=== PATIENT | female | born 1935 | race Caucasian/White ===

== ENCOUNTER 2023-01-03 12:43 | Inpatient (IN) | payer OTHER ==
[~2023-01-03] VITALS: Ht 167.6 cm; Wt 80.7 kg
[2023-01-03 12:55] VITALS: BP 156/89; PULSE 73; RESP 18; TEMP 97.8; O2SAT 100
[2023-01-03] MEDS ORDERED: MORPHINE SULFATE 2 MG/ML SYR IVP ONE (13:30)
[2023-01-03] MEDS ORDERED: ONDANSETRON 4 MG/2 ML VIAL IVP ONE (13:30)
[2023-01-03 13:50] VITALS: O2SAT 100
[2023-01-03 14:06] LABS: BASOPHILS % (AUTO) 0.2 % (0.0-2.0); EOSINOPHILS # (AUTO) 0.1 K/uL (0-0.4); EOSINOPHILS % (AUTO) 0.4 % (0.0-4.0); HEMATOCRIT 40.6 % (36-48); HEMOGLOBIN 13.2 g/dL (12.0-16.0); LYMPHOCYTES # (AUTO) 1.2 K/uL (2.5-16.5); LYMPHOCYTES % (AUTO) 7.9 % (20.5-51.1); MEAN CORPUSCULAR HEMOGLOBIN 28 pg (27-31); MEAN CORPUSCULAR HGB CONC 33 g/dL (33-37); MEAN CORPUSCULAR VOLUME 85.3 fL (80-94); MONOCYTES # (AUTO) 0.8 K/uL (0.8-1.0); MONOCYTES % (AUTO) 5.6 % (1.7-9.3); NEUTROPHILS # (AUTO) 12.7 K/uL (1.8-7.7); NEUTROPHILS % (AUTO) 85.9 % (42.2-75.2); PLATELET COUNT (AUTO) 229 K/uL (140-450); RED BLOOD CELL COUNT(AUTO) 4.76 MIL/uL (4.20-5.40); RED CELL DISTRIBUTION WIDTH 16.5 % (11.6-13.7); WHITE BLOOD COUNT (AUTO) 14.8 K/uL (4.8-10.8)
[2023-01-03 14:16] LABS: INR 1.22 (0.8-1.2); PARTIAL THROMBOPLASTIN TIME 29.5 secs (22-35.6); PROTHROMBIN TIME 12.7 secs (10.8-13.4)
[2023-01-03 14:18] LABS: ALANINE AMINOTRANSFERASE 17 U/L (12-78); ALBUMIN 3.8 g/dL (3.4-5.0); ALKALINE PHOSPHATASE 55 U/L (50-136); ASPARTATE AMINOTRANSFERASE 29 U/L (15-37); CALCIUM 9.5 mg/dL (8.5-10.1); CARBON DIOXIDE 28.1 mmol/L (21-32); CHLORIDE 100 mmol/L (98-107); CREATININE 1.1 mg/dL (0.6-1.3); GLUCOSE 104 mg/dL (74-106); POTASSIUM 4.1 mmol/L (3.5-5.1); SODIUM SERUM 136 mmol/L (136-145); TOTAL BILIRUBIN 0.6 mg/dL (0.0-1.0); TOTAL PROTEIN, SERUM 7.3 g/dL (6.4-8.2); UREA NITROGEN, BLOOD 39 mg/dL (7-18)
[2023-01-03] MEDS ORDERED: MORPHINE SULFATE 4 MG/ML SYR IVP ONE (16:10)
[2023-01-03] MEDS ORDERED: DOCUSATE SODIUM 100 MG GELCAP PO PRN (16:35)
[2023-01-03] MEDS ORDERED: POTASSIUM CHLORIDE 10 MEQ TABER PO PRN (16:35)
[2023-01-03] MEDS ORDERED: guaiFENesin DM 200/20 MG-10 ML 10 ML UDC PO PRN (16:35)
[2023-01-03] MEDS ORDERED: ACETAMINOPHEN 325 MG TAB PO PRN (16:35)
[2023-01-03] MEDS ORDERED: MORPHINE SULFATE 2 MG/ML SYR IVP PRN (16:35)
[2023-01-03] MEDS ORDERED: hydrALAZINE 20 MG/ML VIAL IVP PRN (16:35)
[2023-01-03] MEDS ORDERED: ZOLPIDEM 5 MG TAB PO PRN (16:35)
[2023-01-03] MEDS ORDERED: ONDANSETRON 4 MG/2 ML VIAL IM/IVP PRN (16:35)
[2023-01-03] MEDS ORDERED: HYDROcodone/APAP 7.5/325 MG 1 TAB PO PRN (16:35)
[2023-01-03] MEDS ORDERED: ASPI-1822 PO (16:37)
[2023-01-03] MEDS ORDERED: METO-744 PO (16:37)
[2023-01-03] MEDS ORDERED: [UNRECOGNIZED DRUG - CODE] PO (16:37)
[2023-01-03] MEDS ORDERED: AMLO-3 PO (16:37)
[2023-01-03] MEDS ORDERED: POTA8TAB (16:37)
[2023-01-03] MEDS ORDERED: SIMV10TA92 PO (16:37)
[2023-01-03] MEDS ORDERED: OLME40TA PO (16:37)
[2023-01-03] MEDS ORDERED: HYDR25TA32 PO (16:37)
[2023-01-03] MEDS: DEXT 5% / NACL 0.9% 1,000 ML IV SCH (16:57)
[2023-01-03 17:44] LABS: CHOL/HDL RATIO 2.7 (1-4.5); FREE T4 (FREE THYROXINE) 1.31 ng/dL (0.76-1.46); MAGNESIUM 1.6 mg/dL (1.8-2.4); PHOSPHORUS 3.9 mg/dL (2.5-4.9); THYROID STIMULATING HORMONE 1.51 uIU/mL (0.34-3.74)
[2023-01-03 19:38] LABS: APPEARANCE,URINE CLEAR (CLEAR); BILIRUBIN,URINE NEGATIVE (NEGATIVE); BLOOD, URINE NEGATIVE (NEGATIVE); COLOR,URINE YELLOW (YELLOW); LEUKOCYTE ESTERASE ,URINE 2+ (NEGATIVE); NITRITE, URINE POSITIVE (NEGATIVE); PROTEIN,URINE NEGATIVE (NEGATIVE); UGLUCOSE NEGATIVE (NEGATIVE); UROBILINOGEN,URINE 0.2 EU/dL (0.2 - 1)
[2023-01-03 19:51] LABS: BACTERIA,URINE FEW /HPF (None Seen); RBC,URINE 0-5 /HPF (0-5); SQUAMOUS EPITHELIAL CELL,UR 4-10 (MOD) /LPF (0-3 (FEW))
[2023-01-03 22:40] VITALS: PULSE 71; RESP 18; O2SAT 97
[2023-01-03] MEDS ORDERED: LEVOFLOXACIN 500 MG/D5W PREMIX 100 ML IV SCH (23:05)
[2023-01-03 23:20] VITALS: PULSE 70; RESP 16; O2SAT 97
[2023-01-04] VITALS (7 sets, daily range): BP systolic 141–169; BP diastolic 53–65; PULSE 75–83; RESP 18–20; TEMP 97.1–98.5; O2SAT 92–95
[2023-01-04] MEDS: LEVOFLOXACIN 750 MG/D5W PREMIX 150 ML IV SCH ×2 (01:00→08:48)
[2023-01-04] MEDS: DEXT 5% / NACL 0.9% 1,000 ML IV SCH ×3 (04:53→23:48)
[2023-01-04 05:36] LABS: BASOPHILS % (AUTO) 0.2 % (0.0-2.0); EOSINOPHILS # (AUTO) 0.2 K/uL (0-0.4); EOSINOPHILS % (AUTO) 2.2 % (0.0-4.0); HEMATOCRIT 36.4 % (36-48); HEMOGLOBIN 11.8 g/dL (12.0-16.0); LYMPHOCYTES # (AUTO) 0.8 K/uL (2.5-16.5); MEAN CORPUSCULAR HEMOGLOBIN 28 pg (27-31); MEAN CORPUSCULAR HGB CONC 32 g/dL (33-37); MEAN CORPUSCULAR VOLUME 85.5 fL (80-94); MONOCYTES # (AUTO) 0.5 K/uL (0.8-1.0); MONOCYTES % (AUTO) 4.7 % (1.7-9.3); NEUTROPHILS # (AUTO) 9.7 K/uL (1.8-7.7); NEUTROPHILS % (AUTO) 85.9 % (42.2-75.2); PLATELET COUNT (AUTO) 200 K/uL (140-450); RED BLOOD CELL COUNT(AUTO) 4.26 MIL/uL (4.20-5.40); RED CELL DISTRIBUTION WIDTH 16.5 % (11.6-13.7); WHITE BLOOD COUNT (AUTO) 11.3 K/uL (4.8-10.8)
[2023-01-04 05:51] LABS: ANION GAP 10.4 (8-16); CALCIUM 8.5 mg/dL (8.5-10.1); CARBON DIOXIDE 29.8 mmol/L (21-32); CHLORIDE 102 mmol/L (98-107); CREATININE 0.9 mg/dL (0.6-1.3); GLUCOSE 126 mg/dL (74-106); POTASSIUM 4.2 mmol/L (3.5-5.1); SODIUM SERUM 138 mmol/L (136-145); UREA NITROGEN, BLOOD 26 mg/dL (7-18)
[2023-01-04 07:09] LABS: T4 (THYROXINE) 10.1 ug/dL (4.5-12.0)
[2023-01-04] MEDS ORDERED: ACETAMINOPHEN 325 MG TAB PO PRN (07:40)
[2023-01-04] MEDS ORDERED: DOCUSATE SODIUM 100 MG GELCAP PO PRN (07:40)
[2023-01-04] MEDS ORDERED: LORazepam 2 MG/ML VIAL IVP PRN (07:40)
[2023-01-04] MEDS ORDERED: POTASSIUM CHLORIDE 10 MEQ TABER PO PRN (07:40)
[2023-01-04] MEDS ORDERED: MAG SULF 2000 MG/WATER PREMIX 50 ML IV PRN (07:40)
[2023-01-04] MEDS: PANTOPRAZOLE 40 MG TABEC PO SCH (08:48)
[2023-01-04] MEDS: MORPHINE SULFATE 2 MG/ML SYR IVP PRN ×3 (10:06→20:16)
[2023-01-04] MEDS: hydrALAZINE 20 MG/ML VIAL IVP PRN (15:57)
[2023-01-04] MEDS: ZOLPIDEM 10 MG TAB PO PRN (20:15)
[2023-01-05] VITALS (11 sets, daily range): BP systolic 118–165; BP diastolic 49–61; PULSE 75–91; RESP 18–22; TEMP 98.2–98.5; O2SAT 93–96
[2023-01-05] MEDS: hydrALAZINE 20 MG/ML VIAL IVP PRN (04:19)
[2023-01-05] MEDS: MORPHINE SULFATE 2 MG/ML SYR IVP PRN (05:12)
[2023-01-05 05:24] LABS: BASOPHILS % (AUTO) 0.2 % (0.0-2.0); EOSINOPHILS % (AUTO) 0.3 % (0.0-4.0); HEMATOCRIT 37.8 % (36-48); HEMOGLOBIN 12.5 g/dL (12.0-16.0); LYMPHOCYTES # (AUTO) 0.9 K/uL (2.5-16.5); LYMPHOCYTES % (AUTO) 7.2 % (20.5-51.1); MEAN CORPUSCULAR HEMOGLOBIN 28 pg (27-31); MEAN CORPUSCULAR HGB CONC 33 g/dL (33-37); MEAN CORPUSCULAR VOLUME 85.4 fL (80-94); MONOCYTES # (AUTO) 1.1 K/uL (0.8-1.0); MONOCYTES % (AUTO) 8.9 % (1.7-9.3); NEUTROPHILS # (AUTO) 10.1 K/uL (1.8-7.7); NEUTROPHILS % (AUTO) 83.4 % (42.2-75.2); PLATELET COUNT (AUTO) 191 K/uL (140-450); RED BLOOD CELL COUNT(AUTO) 4.43 MIL/uL (4.20-5.40); RED CELL DISTRIBUTION WIDTH 16.2 % (11.6-13.7); WHITE BLOOD COUNT (AUTO) 12.1 K/uL (4.8-10.8)
[2023-01-05 05:59] LABS: ANION GAP 12.8 (8-16); CALCIUM 8.6 mg/dL (8.5-10.1); CARBON DIOXIDE 28.3 mmol/L (21-32); CHLORIDE 101 mmol/L (98-107); GLUCOSE 135 mg/dL (74-106); POTASSIUM 4.1 mmol/L (3.5-5.1); SODIUM SERUM 138 mmol/L (136-145); UREA NITROGEN, BLOOD 21 mg/dL (7-18)
[2023-01-05] MEDS: PANTOPRAZOLE 40 MG TABEC PO SCH (09:00)
[2023-01-05] MEDS ORDERED: ceFAZolin 2,000 MG VIAL ONE (10:45)
[2023-01-05] MEDS ORDERED: BUPIVACAINE-MPF 0.25% 30 ML VIAL INJ ONE (10:45)
[2023-01-05] MEDS ORDERED: TRANEXAMIC ACID 1,000 MG/10 ML VIAL ONE ×2 (10:45→12:20)
[2023-01-05] MEDS ORDERED: BUPIVACAINE MPF 0.25% 10 ML VIAL INJ ONE (10:46)
[2023-01-05] MEDS ORDERED: PROPOFOL 200 MG/20 ML VIAL IV ONE (10:57)
[2023-01-05] MEDS ORDERED: fentaNYL citrate 0.05 MG/ML VIAL ONE (10:58)
[2023-01-05] MEDS ORDERED: MORPHINE PRES FREE 10 MG/10 ML AMP IV ONE (10:58)
[2023-01-05] MEDS ORDERED: MIDAZOLAM 5 MG/5 ML VIAL ONE (10:59)
[2023-01-05] MEDS ORDERED: VANCOMYCIN 1,000 MG VIAL ONE (11:51)
[2023-01-05] MEDS ORDERED: ETOMIDATE 20 MG/10 ML VIAL IVP ONE (12:31)
[2023-01-05] MEDS ORDERED: ALBUTEROL SULFATE/IPRATROPIU 3 ML SOL IH SCH (14:53)
[2023-01-05] MEDS: DEXT 5% / NACL 0.9% 1,000 ML IV SCH (18:10)
[2023-01-05] MEDS: ONDANSETRON 4 MG/2 ML VIAL IVP PRN (19:20)
[2023-01-06 02:29] VITALS: BP 125/45; PULSE 73; RESP 18; O2SAT 96
[2023-01-06] MEDS: MORPHINE SULFATE 2 MG/ML SYR IVP PRN ×2 (02:30→17:28)
[2023-01-06 04:00] VITALS: BP 114/42; PULSE 70; RESP 18; TEMP 98; O2SAT 99
[2023-01-06 05:29] LABS: BASOPHILS % (AUTO) 0.2 % (0.0-2.0); EOSINOPHILS % (AUTO) 0.1 % (0.0-4.0); HEMATOCRIT 34.6 % (36-48); HEMOGLOBIN 11.2 g/dL (12.0-16.0); LYMPHOCYTES # (AUTO) 0.5 K/uL (2.5-16.5); LYMPHOCYTES % (AUTO) 4.1 % (20.5-51.1); MEAN CORPUSCULAR HEMOGLOBIN 28 pg (27-31); MEAN CORPUSCULAR HGB CONC 32 g/dL (33-37); MEAN CORPUSCULAR VOLUME 86.5 fL (80-94); MONOCYTES # (AUTO) 1.1 K/uL (0.8-1.0); MONOCYTES % (AUTO) 9.1 % (1.7-9.3); NEUTROPHILS # (AUTO) 10.8 K/uL (1.8-7.7); NEUTROPHILS % (AUTO) 86.5 % (42.2-75.2); PLATELET COUNT (AUTO) 158 K/uL (140-450); RED CELL DISTRIBUTION WIDTH 16.7 % (11.6-13.7); WHITE BLOOD COUNT (AUTO) 12.5 K/uL (4.8-10.8)
[2023-01-06 06:11] LABS: ANION GAP 15.5 (8-16); CALCIUM 8.4 mg/dL (8.5-10.1); CARBON DIOXIDE 26.5 mmol/L (21-32); CHLORIDE 103 mmol/L (98-107); CREATININE 1.3 mg/dL (0.6-1.3); GLUCOSE 143 mg/dL (74-106); SODIUM SERUM 140 mmol/L (136-145); UREA NITROGEN, BLOOD 35 mg/dL (7-18)
[2023-01-06] MEDS: DEXT 5% / NACL 0.9% 1,000 ML IV SCH (06:34)
[2023-01-06 08:00] VITALS: PULSE 78; RESP 20; TEMP 97.7; O2SAT 96
[2023-01-06] MEDS: LEVOFLOXACIN 750 MG/D5W PREMIX 150 ML IV SCH (09:41)
[2023-01-06] MEDS: PANTOPRAZOLE 40 MG TABEC PO SCH (09:41)
[2023-01-06] MEDS: ENOXAPARIN 40 MG/0.4 ML SYR SUBQ SCH (09:47)
[2023-01-06] MEDS ORDERED: diazePAM 5 MG TAB PO PRN (19:00)
[2023-01-06] MEDS ORDERED: HYDROcodone/APAP 5/325 MG 1 TAB TAB PO PRN (19:00)
[2023-01-06 19:44] VITALS: O2SAT 94
[2023-01-06 20:00] VITALS: BP 155/56; PULSE 86; RESP 18; RESP 20; TEMP 98.4; O2SAT 94
[2023-01-06] MEDS: ONDANSETRON 4 MG/2 ML VIAL IVP PRN (21:15)
[2023-01-06] MEDS: ZOLPIDEM 10 MG TAB PO PRN (22:48)
[2023-01-07] MEDS: hydrALAZINE 20 MG/ML VIAL IVP PRN (03:44)
[2023-01-07 04:00] VITALS: BP 144/71; RESP 18; TEMP 98.1; O2SAT 94
[2023-01-07 05:18] LABS: BASOPHILS % (AUTO) 0.1 % (0.0-2.0); HEMATOCRIT 34.3 % (36-48); HEMOGLOBIN 11.2 g/dL (12.0-16.0); LYMPHOCYTES # (AUTO) 0.7 K/uL (2.5-16.5); LYMPHOCYTES % (AUTO) 4.8 % (20.5-51.1); MEAN CORPUSCULAR HEMOGLOBIN 28 pg (27-31); MEAN CORPUSCULAR HGB CONC 33 g/dL (33-37); MEAN CORPUSCULAR VOLUME 85.1 fL (80-94); MONOCYTES # (AUTO) 1.1 K/uL (0.8-1.0); MONOCYTES % (AUTO) 8.2 % (1.7-9.3); NEUTROPHILS # (AUTO) 11.7 K/uL (1.8-7.7); NEUTROPHILS % (AUTO) 86.9 % (42.2-75.2); PLATELET COUNT (AUTO) 213 K/uL (140-450); RED BLOOD CELL COUNT(AUTO) 4.03 MIL/uL (4.20-5.40); RED CELL DISTRIBUTION WIDTH 16.6 % (11.6-13.7); WHITE BLOOD COUNT (AUTO) 13.5 K/uL (4.8-10.8)
[2023-01-07 05:41] LABS: ANION GAP 12.6 (8-16); CALCIUM 8.4 mg/dL (8.5-10.1); CARBON DIOXIDE 28.2 mmol/L (21-32); CHLORIDE 100 mmol/L (98-107); GLUCOSE 133 mg/dL (74-106); POTASSIUM 3.8 mmol/L (3.5-5.1); SODIUM SERUM 137 mmol/L (136-145); UREA NITROGEN, BLOOD 31 mg/dL (7-18)
[2023-01-07 08:00] VITALS: TEMP 97.6
[2023-01-07] MEDS ORDERED: CRUSHER, PILL MC ONE (08:30)
[2023-01-07] MEDS: PANTOPRAZOLE 40 MG TABEC PO SCH (08:33)
[2023-01-07] MEDS: ENOXAPARIN 40 MG/0.4 ML SYR SUBQ SCH (08:38)
[2023-01-07] MEDS ORDERED: METOPROLOL SUCCINATE 50 MG TABER PO SCH (09:00)
[2023-01-07] MEDS ORDERED: hydroCHLOROthiazide 25 MG TAB PO SCH (09:00)
[2023-01-07] MEDS ORDERED: amLODIPine 5 MG TAB PO SCH (09:00)
[2023-01-07 09:01] VITALS: PULSE 85; RESP 18; O2SAT 97
[2023-01-07] MEDS ORDERED: LOV40I SUBQ (10:56)
[2023-01-07] MEDS ORDERED: HYDR-5080 PO (10:58)
[2023-01-07 12:00] VITALS: BP 155/53; PULSE 85; RESP 18; TEMP 97.6; O2SAT 97
== END 2023-01-07 15:52 | DRG 522 ==
LOC: MED 13:20 → MMU 15:52 → MTU 20:32
PROVIDERS: ADMIT Family Medicine; ATTEND Family Medicine
PROC: 0SRR0JZ Replacement of Right Hip Joint, Femoral Surface with Synthetic Substitute, Open Approach (ICD-10-PCS; principal; 2023-01-05 10:30)
DX: S72.001A Fracture of unspecified part of neck of right femur, initial encounter for closed fracture (principal); N39.0 Urinary tract infection, site not specified; E86.0 Dehydration; E83.42 Hypomagnesemia; I50.9 Heart failure, unspecified; Z66 Do not resuscitate; E78.5 Hyperlipidemia, unspecified; I11.0 Hypertensive heart disease with heart failure; W01.0XXA Fall on same level from slipping, tripping and stumbling without subsequent striking against object, initial encounter; Z96.642 Presence of left artificial hip joint; R26.81 Unsteadiness on feet; I35.0 Nonrheumatic aortic (valve) stenosis; Z87.891 Personal history of nicotine dependence; Z88.0 Allergy status to penicillin
CPT/HCPCS: 36415; 71045; 72170; 73502; 73700; 80048; 80053; 81001; 82150; 83036; 83690; 83735; 83880; 84100; 84436; 84439; 84443; 84479; 85025; 85610; 85730; 86886; 86900; 86901; 87081; 87086; 88305; 88311; 93005; 94640; 94660; 96374; 96375; 96376; 97110; 97112; 97163-GP; 97530; 99285; C1776; J0360; J0690; J1650; J1956; J2250; J2270; J2405; J2704; J3010; J3370; J3475; J3490; J7060